=== PATIENT | female | born 1985 | race Caucasian/White ===

== ENCOUNTER 2022-03-17 10:03 | Emergency (ER) | payer BC, SELFPAY ==
[2022-03-17 10:28] VITALS: BP 118/63; PULSE 90; RESP 18; TEMP 36.9; O2SAT 98
--- NOTE | 2022-03-17 10:35 | ED.URI ---
HPI - URI/Sore Throat General Chief Complaint: Upper Respiratory Infection Stated Complaint: sorethroat Time Seen by Provider: 03/17/22 10:35 Source: patient, RN notes reviewed and old records reviewed Mode of arrival: ambulatory Limitations: no limitations History of Present Illness HPI Narrative: 36 year old female who presents to [facility] care with complaints of sore throat since Monday afternoon with body aches, chills states that she thinks she has had fevers. Patient denies any shortness of breath or any cough, no nausea, vomiting or diarrhea. Patient reports that recently had strep and kids ill.She states that she has been taking Tylenol for her discomfort. MD elicited complaint: fever and sore throat Pertinent past history: other (strep throat) Onset (ago): day(s) (2) Pain scale (0-10): 6 Able to tolerate fluids by mouth: Yes Treatments prior to arrival: acetaminophen Related Data Allergies Allergy/AdvReac Type Severity Reaction Status Date / Time No Known Allergies Allergy Verified 03/17/22 10:32 Review of Systems Review of Systems: CONSTITUTIONAL:Reports malaise, chills, sweats, or fever. EYES: Denies visual changes, redness, or discharge. ENT: Reports mild rhinorrhea, congestion,no sinus pain, no otalgia positive for sore throat. CARDIOVASCULAR: Denies chest pain, palpitations, or edema. RESPIRATORY: Reports cough.? Denies dyspnea. GASTROINTESTINAL: Denies abdominal pain, nausea, vomiting, diarrhea SKIN: Denies rash or itching. MUSCULOSKELETAL: myalgia. NEUROLOGIC: Denies headache. All systems reviewed & are unremarkable except as noted in HPI and below PMFSH Past Medical History Medical History (Updated 03/18/22 @ 09:26 by Adwoa Burch NP) Strep throat Surgical History Surgical History (Updated 03/18/22 @ 09:27 by Adwoa Burch NP) Previous section X3 Social History Social History (Updated 03/18/22 @ 09:26 by Adwoa Burch NP) Smoking status: Never smoker Alcohol intake: current Alcohol use details: rare social Substance use: never Living arrangements: with family Gender identity (if verbalized by the patient): Female Comments At time of signature, agree with nursing past medical, surgical, social and family history. There is no relevant family history pertinent to the presenting complaint Exam Narrative: GENERAL: Well-appearing, well-nourished, and in no acute distress. HEAD: Normocephalic EYES: PERRLA, conjunctivae clear ENT: Nares clear, turbinates edematous and erythematous, clear discharge. Mucous membranes moist. TM pearly veliz with dull light reflex bilaterally; no tragal tenderness. Oropharynx erythematous without lesions. Tonsils red and hugely enlarged and without exudate, no drooling, no hoarseness, no trismus, uvula midline. NECK: Supple. lymphadenopathy CHEST: Clear to auscultation, breath sounds equal. No wheezing, rhonchi, rales, or stridor. No respiratory distress, speaks in full sentences.no cough noted SAO2 98% on room air HEART: Regular rate and rhythm. No murmur heard. SKIN: Warm, dry, no rash. NEURO: Alert and oriented x3. PSYCH: Normal mood and affect Course Course Emergency Course: Patient is aware of diagnosis, understands and agrees to treatment plan.? Anticipatory guidance given.? Patient agrees to follow-up as directed and is aware of reasons to seek care at the emergency department. Portions of this record may have been created with voice recognition software Level of Care: Express Care Visit Vital Signs Vital signs: Vital Signs Temperature 36.9 C 03/17/22 10:28 Pulse Rate 90 03/17/22 10:28 Respiratory Rate 18 03/17/22 10:28 Blood Pressure 118/63 03/17/22 10:28 Pulse Oximetry 98 03/17/22 10:28 Oxygen Delivery Room Air 03/17/22 10:28 Temperature 36.9 C 03/17/22 10:28 Pulse Rate 90 03/17/22 10:28 Respiratory Rate 18 03/17/22 10:28 Blood Pressure
== END 2022-03-17 11:30 | disposition home or self-care (01) ==
PROVIDERS: Emergency Provider Registered Nurse; PCP Family Medicine
DX: J02.9 Acute pharyngitis, unspecified (principal)
CPT/HCPCS: 87880; 99203; G0463